=== PATIENT | female | born 1980 | race African-American/Black ===

== ENCOUNTER 2020-08-06 08:09 | Day surgery (SDC) | payer OTHER, SELFPAY ==
[~2020-08-06] VITALS: Ht 165.1 cm; Wt 76.2 kg
[2020-08-06] MEDS ORDERED: LIDOCAINE MPF 1% 5 ML ONE (10:09)
[2020-08-06] MEDS ORDERED: LIDOCAINE MPF 1% 10 MG/ML VIAL INJ ONE (10:50)
[2020-08-06] MEDS ORDERED: fentaNYL citrate 0.05 MG/ML VIAL ONE (11:01)
[2020-08-06] MEDS ORDERED: MIDAZOLAM 5 MG/5 ML VIAL ONE ×2 (11:01→11:18)
[2020-08-06] MEDS ORDERED: LIDOCAINE 2% 100 MG/5 ML UJET TP ONE ×2 (11:01→11:30)
[2020-08-06] MEDS ORDERED: fentaNYL citrate 0.05 MG/ML VIAL IVP ONE (11:35)
[2020-08-06] MEDS ORDERED: MIDAZOLAM 2 MG/2 ML VIAL IVP ONE (11:35)
== END 2020-08-06 12:35 | disposition home or self-care (01) ==
LOC: MDS 08:09 → MMU 08:10 → MDS 12:35
PROVIDERS: ATTEND Internal Medicine Gastroenterology
DX: K62.5 Hemorrhage of anus and rectum (principal); K57.30 Diverticulosis of large intestine without perforation or abscess without bleeding; K64.4 Residual hemorrhoidal skin tags; D50.0 Iron deficiency anemia secondary to blood loss (chronic); Z88.5 Allergy status to narcotic agent; Z88.8 Allergy status to other drugs, medicaments and biological substances; Z79.899 Other long term (current) drug therapy; Z20.822 Contact with and (suspected) exposure to COVID-19
CPT/HCPCS: 36415; 43239; 45378; 86677; J2001; J2250; J3010; U0003

== ENCOUNTER 2020-10-08 06:18 | Day surgery (SDC) | payer OTHER ==
[~2020-10-08] VITALS: Ht 167.6 cm; Wt 72.6 kg
[2020-10-08 08:21] LABS: BASOPHILS % (AUTO) 0.7 % (0.0-2.0); EOSINOPHILS # (AUTO) 0.3 K/uL (0-0.4); EOSINOPHILS % (AUTO) 5.5 % (0.0-4.0); HEMATOCRIT 34.8 % (36-48); HEMOGLOBIN 11.8 g/dL (12.0-16.0); LYMPHOCYTES # (AUTO) 1.6 K/uL (2.5-16.5); MEAN CORPUSCULAR HEMOGLOBIN 24 pg (27-31); MEAN CORPUSCULAR HGB CONC 34 g/dL (33-37); MEAN CORPUSCULAR VOLUME 71.6 fL (80-94); MONOCYTES # (AUTO) 0.7 K/uL (0.8-1.0); MONOCYTES % (AUTO) 10.6 % (1.7-9.3); NEUTROPHILS # (AUTO) 3.6 K/uL (1.8-7.7); NEUTROPHILS % (AUTO) 57.2 % (42.2-75.2); PLATELET COUNT (AUTO) 205 K/uL (140-450); RED BLOOD CELL COUNT(AUTO) 4.87 MIL/uL (4.20-5.40); RED CELL DISTRIBUTION WIDTH 18.9 % (11.6-13.7); WHITE BLOOD COUNT (AUTO) 6.3 K/uL (4.8-10.8)
[2020-10-08 08:27] LABS: PROTHROMBIN TIME 11.9 secs (10.8-13.4)
[2020-10-08] MEDS ORDERED: LIDOCAINE/EPI MPF 1%1:200000 30 ML VIAL INJ ONE (09:18)
[2020-10-08] MEDS ORDERED: fentaNYL citrate 0.05 MG/ML VIAL ONE (09:23)
[2020-10-08] MEDS ORDERED: LIDOCAINE 1% 500 MG/50 ML VIAL ONE (09:24)
[2020-10-08] MEDS ORDERED: LIDOCAINE MPF 1% 10 MG/ML VIAL INJ SCH (09:45)
[2020-10-08] MEDS ORDERED: fentaNYL citrate 0.05 MG/ML VIAL IVP ONE (09:45)
[2020-10-08] MEDS ORDERED: MORPHINE SULFATE 2 MG/ML SYR IVP PRN (10:15)
[2020-10-08] MEDS ORDERED: MORPHINE SULFATE 2 MG/ML SYR IVP ONE (10:22)
== END 2020-10-08 11:05 | disposition home or self-care (01) ==
LOC: MDS 06:18 → MMU 06:19 → MDS 11:05
PROVIDERS: ATTEND Internal Medicine Gastroenterology
DX: K75.4 Autoimmune hepatitis (principal)
CPT/HCPCS: 36415; 47000; 76942; 85025; 85610; 85730; J2001; J2270; J3010